=== PATIENT | female | born 1945 | race American Indian/Alaskan Native ===

== ENCOUNTER 2020-01-26 17:51 | Outpatient (CLI) | payer BC, MEDICARE, OTHER ==
[2020-01-26 18:05] LABS: #Lymphocytes 0.6 thou/uL (1.20-3.40); #Monocytes 0.5 thou/uL (0.11-0.59); #Neutrophils 4.9 thou/uL (1.40-6.50); %Basophils 0.7 % (0.0-1.0); %Eosinophils 0.5 % (0.0-10.0); %Lymphocytes 9.3 % (21.0-51.0); %Monocytes 8.4 % (0.0-10.0); %Neutrophils 81.1 % (42.0-75.0); Hemoglobin 12.9 g/dL (12.0-16.0); Mean Corpuscular HGB CONC 33.2 g/dL (32.0-36.0); Mean Corpuscular Hemoglobin 31.9 pg (27.0-31.0); Mean Corpuscular Volume 96.1 fL (78.0-98.0); Mean Platelet Volume 8.2 fL (7.4-10.4); Platelet Count 193 thou/uL (130-400); RBC Distribution Width 11.8 % (11.5-14.5); Red Blood Cell (RBC) Count 4.05 mill/uL (4.20-5.40)
[2020-01-26 18:08] LABS: Bilirubin Negative (Negative); Blood, Urine Negative (Negative); Clarity Clear (Clear); Glucose, Urine (Dipstick) Negative (Negative); Ketone, Urine Negative (Negative); Leukocyte Trace (Negative); Nitrite Negative (Negative); Protein, Urine (Dipstick) Negative (Neg-Trace); pH, Urine 7.5 (5.0-9.0)
[2020-01-26 18:15] LABS: Bacteria/HPF 1+ HPF (None Seen); Other Microscopic Description C&S SET UP; RBC/HPF 0-3 HPF (0-3); Squamous Epithelial 0-3 HPF (0-3); WBC/HPF 0-3 HPF (0-3)
[2020-01-26 18:16] LABS: ALT (SGPT) 16 U/L (8-55); AST (SGOT) 16 U/L (5-34); Albumin 3.8 g/dL (3.4-4.8); Alkaline Phosphatase 65 U/L (40-110); Anion Gap 16 mmol/L (10-20); BUN (Urea Nitrogen) 20 mg/dL (9.8-20.1); Bilirubin, Total 0.3 mg/dL (0.2-1.2); Calc. Creatinine Clearance 0 mL/min (70-130); Calcium 9.3 mg/dL (7.8-10.44); Carbon Dioxide 24 mmol/L (23-31); Chloride 101 mmol/L (98-107); Estimated GFR-MDRD 56; Globulin 2.3 g/dL (2.4-3.5); Glucose 80 mg/dL (83-110); Potassium 4.1 mmol/L (3.5-5.1); Protein, Total 6.1 g/dL (6.0-8.3); Sodium 137 mmol/L (136-145)
== END 2020-01-26 17:52 | disposition home or self-care (01) ==
LOC: BURMANOR 17:51
PROVIDERS: ATTEND Registered Nurse Community Health
DX: R50.9 Fever, unspecified (principal)
CPT/HCPCS: 80053; 81001; 85025; 87086; 87804

== ENCOUNTER 2020-01-30 22:55 | Emergency (ER) | payer MEDICARE ==
--- NOTE | 2020-01-31 09:47 | CT ---
PRELIMINARY REPORT/[facility]/EMERGENCY AFTER HOURS PROCEDURE: Receipt of this report by the clinical staff was confirmed with Sathish Andrew MD by Hortencia Medina on Jan 30, 2020 23:42:00 RETIREMENT ASSISTANT. Addendum electronically signed by Hortencia Medina on January 30, 2020 11:4 2:45 PM RETIREMENT ASSISTANT EXAM: CT Head Without Intravenous Contrast. CLINICAL HISTORY: FALL, ER PT, NO PRIOR TECHNIQUE: Axial computed tomography images of the head/brain without intravenous contrast. Coronal and sagittal reformatted images provided. COMPARISON: None provided. FINDINGS: BRAIN: No acute intraparenchymal hemorrhage. No mass lesion. No midline shift or extra-axial collect ion. Subtle hypodensity within the anterior left frontal lobe with indistinct mondragon-white matter diff erentiation. No sulcal effacement to suggest edema. Diffuse cerebral atrophy, likely age related. VENTRICLES: No hydrocephalus. ORBITS: The orbits are unremarkable. SINUSES AND MASTOIDS: The paranasal sinuses and mastoid air cells are clear. SOFT TISSUES: No significant facial or scalp soft tissue swelling evident. No radiopaque foreign body is seen. BONES: No acute skull fracture. IMPRESSION: 1. No acute intracranial hemorrhage. 2. Subtle hypodensity within the anterior left frontal lobe with indistinct mondragon-white matter differ entiation. This is favored to represent artifact from adjacent bony structures. In the appropriate clinical scenario, acute ischemia could have a similar appearance. Correlate with findings on neurol ogic exam. ELECTRONICALLY SIGNED BY: Donal Rosen M.D. Jan 30, 2020 11:37:03 PM RETIREMENT ASSISTANT FINAL REPORT CT OF THE BRAIN WITHOUT CONTRAST: DATE: 01/30/2020. FINDINGS: A noncontrast CT was performed after a fall. There are no prior scans available for comparison. Diffuse moderately severe atrophy is present with moderate compensatory dilatation of the ventricles. There is no ventricular shift. No intracranial bleeding or extraaxial hematoma was seen. There is no sign of mass, edema, or definite acute stroke. There is a subtle area of slightly decreased dens ity in the left anterior frontal lobe near the planum sphenoidale. This seems more likely to be a co nsequence of artifact from the subjacent bone than acute stroke; however, in the proper clinical cont ext, the latter could be considered. The skull appears intact with no sign of fracture. The visible paranasal sinuses, sphenoid sinus, and mastoid air cells are all clear. The zygomatic arches and na stephie bones appear intact. IMPRESSION: Atrophy and chronic ischemic changes, but no acute intracranial findings. See discussion above. Report in agreement with the preliminary reading by [facility]. POS: HOME
--- NOTE | 2020-01-31 09:48 | RAD ---
RIGHT HIP 2 VIEWS: DATE: 01/30/2020. FINDINGS: No fracture was seen. The joint is normal in appearance. The adjacent pubic ring appears intact. IMPRESSION: No acute findings. POS: HOME
== END 2020-01-31 00:07 ==
LOC: BURERS 22:55
DX: S00.03XA Contusion of scalp, initial encounter (principal); S70.01XA Contusion of right hip, initial encounter; K21.9 Gastro-esophageal reflux disease without esophagitis; I10 Essential (primary) hypertension; J45.909 Unspecified asthma, uncomplicated; M79.7 Fibromyalgia; F41.9 Anxiety disorder, unspecified; Z79.82 Long term (current) use of aspirin; Z79.51 Long term (current) use of inhaled steroids; Z79.899 Other long term (current) drug therapy; W06.XXXA Fall from bed, initial encounter
CPT/HCPCS: 70450

== ENCOUNTER 2020-05-03 14:31 | Emergency (ER) | payer BC, MEDICARE, OTHER ==
[2020-05-03 15:26] LABS: Eosinophils 2 % (0-10); Lymphocytes 22 % (21-51); MDiff Complete? YES; Mean Corpuscular HGB CONC 32.4 g/dL (32.0-36.0); Mean Corpuscular Hemoglobin 29.7 pg (27.0-31.0); Mean Corpuscular Volume 91.8 fL (78.0-98.0); Mean Platelet Volume 10.6 fL (7.4-10.4); Monocytes 5 % (0-10); Neutrophil 71 % (42-75); Platelet Count 196 thou/uL (130-400); RBC Distribution Width 12.7 % (11.5-14.5); Red Blood Cell (RBC) Count 4.37 mill/uL (4.20-5.40); White Blood Cell (WBC) Count 5.8 thou/uL (4.8-10.8)
[2020-05-03 15:42] LABS: Base Excess-Venous 4.2 mmol/L (-2.0 to 3.0); Bicarbonate (HCO3v) 31.4 mmol/L (22.0-28.0); CO2 Tension (PvCO2) 57.9 mmHg (42.0-51.0); Calcium, Ionized 1.24 mmol/L (1.15-1.33); Chloride 101 mmol/L (98-107); Hemoglobin - Calc 12.3 g/dL (12.0-16.0); Potassium 3.5 mmol/L (3.5-5.1); Sodium 142 mmol/L (138-145); T. Carbon Dioxide 33.2 mmol/L (22.0-28.0)
[2020-05-03 15:43] LABS: Bilirubin Negative (Negative); Blood, Urine Negative (Negative); Clarity Clear (Clear); Glucose, Urine (Dipstick) Negative (Negative); Ketone, Urine 15 mg/dL (Negative); Leukocyte Negative (Negative); Nitrite Negative (Negative); Protein, Urine (Dipstick) Trace mg/dL (Neg-Trace); Urobilinogen 0.2 mg/dL (Less than 2); pH, Urine 5.5 (5.0-9.0)
[2020-05-03] MEDS ORDERED: Magnesium 2 GM/50 ML BAG (IN WATER) ONE (16:07)
[2020-05-03 17:11] LABS: ALT (SGPT) 20 U/L (8-55); AST (SGOT) 13 U/L (5-34); Albumin 3.4 g/dL (3.4-4.8); Alkaline Phosphatase 46 U/L (40-110); Anion Gap 13 mmol/L (10-20); BUN (Urea Nitrogen) 26 mg/dL (9.8-20.1); Bilirubin, Total 0.3 mg/dL (0.2-1.2); Calc. Creatinine Clearance 0 mL/min (70-130); Calcium 9.3 mg/dL (7.8-10.44); Carbon Dioxide 29 mmol/L (23-31); Chloride 103 mmol/L (98-107); Globulin 1.8 g/dL (2.4-3.5); Glucose 129 mg/dL (83-110); Potassium 3.5 mmol/L (3.5-5.1); Protein, Total 5.2 g/dL (5.8-8.1); Sodium 141 mmol/L (136-145)
== END 2020-05-03 20:04 ==
LOC: BURERS 14:31
DX: E86.0 Dehydration (principal); Z79.899 Other long term (current) drug therapy; Z79.82 Long term (current) use of aspirin; K21.9 Gastro-esophageal reflux disease without esophagitis; I10 Essential (primary) hypertension; G30.9 Alzheimer's disease, unspecified; F02.80 Dementia in other diseases classified elsewhere, unspecified severity, without behavioral disturbance, psychotic disturbance, mood disturbance, and anxiety; J45.909 Unspecified asthma, uncomplicated
CPT/HCPCS: 36415; 51701; 80053; 81003; 82330; 82803; 83735; 85025; 93005; 96365; 96366; J3475

== ENCOUNTER 2020-06-11 07:54 | Emergency (ER) | payer BC, MEDICARE ==
[2020-06-11 08:37] LABS: Bilirubin Negative (Negative); Blood, Urine Trace (Negative); Clarity Clear (Clear); Glucose, Urine (Dipstick) Negative (Negative); Ketone, Urine Trace mg/dL (Negative); Leukocyte Negative (Negative); Nitrite Negative (Negative); Protein, Urine (Dipstick) Negative (Neg-Trace); Specific Gravity, Urine 1.025 (1.005-1.030); pH, Urine 5.5 (5.0-9.0)
[2020-06-11 08:46] LABS: #Lymphocytes 0.9 thou/uL (1.20-3.40); #Monocytes 0.5 thou/uL (0.11-0.59); %Basophils 0.4 % (0.0-1.0); %Eosinophils 0.4 % (0.0-10.0); %Lymphocytes 7.5 % (21.0-51.0); %Monocytes 4.3 % (0.0-10.0); %Neutrophils 87.4 % (42.0-75.0); Hemoglobin 13.4 g/dL (12.0-16.0); Mean Corpuscular HGB CONC 34.9 g/dL (32.0-36.0); Mean Corpuscular Hemoglobin 31.4 pg (27.0-31.0); Mean Corpuscular Volume 89.9 fL (78.0-98.0); Mean Platelet Volume 9.2 fL (7.4-10.4); Platelet Count 235 thou/uL (130-400); Red Blood Cell (RBC) Count 4.26 mill/uL (4.20-5.40); White Blood Cell (WBC) Count 11.4 thou/uL (4.8-10.8)
[2020-06-11 08:53] LABS: Bacteria/HPF 1+ HPF (None Seen); RBC/HPF 0-3 HPF (0-3); Squamous Epithelial 0-3 HPF (0-3); WBC/HPF 0-3 HPF (0-3)
[2020-06-11 08:56] LABS: ALT (SGPT) 21 U/L (8-55); AST (SGOT) 16 U/L (5-34); Albumin 3.7 g/dL (3.4-4.8); Alkaline Phosphatase 66 U/L (40-110); Anion Gap 13 mmol/L (10-20); BUN (Urea Nitrogen) 16 mg/dL (9.8-20.1); Bilirubin, Total 0.7 mg/dL (0.2-1.2); CK (CPK) 13 U/L (29-168); Calc. Creatinine Clearance 0 mL/min (70-130); Calcium 10.2 mg/dL (7.8-10.44); Carbon Dioxide 30 mmol/L (23-31); Chloride 98 mmol/L (98-107); Globulin 2.2 g/dL (2.4-3.5); Glucose 116 mg/dL (83-110); Magnesium 1.8 mg/dL (1.6-2.6); Protein, Total 5.9 g/dL (5.8-8.1); Sodium 137 mmol/L (136-145)
== END 2020-06-11 11:55 ==
LOC: BURERS 07:54
DX: F03.90 Unspecified dementia, unspecified severity, without behavioral disturbance, psychotic disturbance, mood disturbance, and anxiety (principal); K21.9 Gastro-esophageal reflux disease without esophagitis; I10 Essential (primary) hypertension; Z79.899 Other long term (current) drug therapy; Z79.82 Long term (current) use of aspirin
CPT/HCPCS: 51701; 70450; 71045; 80053; 81003; 81015; 82550; 83605; 83735; 84484; 85025; 87040; 87077; 87086; 93005; 94760